=== PATIENT | male | born 1935 | race Caucasian/White ===

== ENCOUNTER 2017-04-01 18:08 | Emergency (ER) | payer MEDICARE ==
[~2017-04-01] VITALS: Ht 177.8 cm; Wt 65.9 kg
[~2017-04-01 18:08] MED LIST: AMLO-39 PO; CHOL200020 PO; FURO-3 PO; MULT-1018 PO; NATTOKINASE PO; OMEG1CAP25 PO; UBID50TA3 PO; [UNRECOGNIZED DRUG - CODE] PO
[2017-04-01 18:53] VITALS: BP 97/64; PULSE 61; RESP 20; O2SAT 99
--- NOTE | 2017-04-01 19:03 | ED.REPORT ---
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 The pt was attempting to sit down this afternoon when he "missed the stool" and fell onto his right side. He hit his right arm and shoulder against a table, resulting in immediate pain, and sustained several abrasions on his right hand while trying to catch himself. He is now experiencing significant right shoulder pain and is unable to lift his arm, though he denies loss of consciousness. The pt last had chemotherapy two weeks ago. He takes two 81 mg aspirin per day. The pt is unsure of his tetanus status. Nursing Notes Stated Complaint: GLF,RIGHT ARM AND HAND INJURY Chief Complaint: Extremity Trauma Nursing Notes Reviewed: Yes Allergies: Coded Allergies: No Known Allergies (Unverified , 04/01/17) Scheduled ([Nattokinase]) 50 MG PO DAILY Acetaminophen (Pain Reliever) 500 Mg Tablet 1,000 MG PO Q4HP AmLODIPine-Expunged Drug, Do Not Renew! (AmLODIPine-Expunged Drug, Do Not Renew! ) 5 Mg Tablet 5 MG PO BID Cholecalciferol (D3)-Expunged Drug, Do Not Re (Vitamin Q-5-Vpppsoda Drug, Do Not Renew!) 2,000 Unit Capsule 4,000 UNIT PO DAILY Furosemide-Expunged Drug, Do Not Renew! (Furosemide-Expunged Drug, Do Not Renew! ) 40 Mg Tablet 40 MG PO BID 40 MG DAILY MULTIVITAMIN-Expunged Drug, Do Not Renew! (MULTI VITAMIN -Expunged Drug, Do Not Renew!) 1 Each Tablet 1 EACH PO DAILY [place]-3 Fatty Acids/Fish Oil-Expunged, Do Not ([place] 3 Fish Oil-Expunged, Do Not Renew!) 1 Cap.ec Capsule. 1 CAP.EC PO DAILY Ubidecarenone (Coq10) 50 Mg Tab.chew 100 MG PO DAILY General Time Seen by MD: 19:02 Chief Complaint Fall Hx Obtained From: Patient Arrived By: Walk-in Onset Occurred: 1 - 4 hours ago Symptom Duration: Since onset Recent Healthcare: No recent doctor visit, No recent hospitalization Similar Sx Previous: No Past Medical History Past Medical History TIA without deficits Hypertension Pneumonia Diverticulosis Hiatal hernia UTI Hemodialysis 2012 Arthritis Depression Anxiety Ureter cancer Past Surgical History Left kidney removal Nephrectomy Reports: Tonsillectomy Smoking History Former Smoker ("quit decades ago") Social History Alcohol Use: "Social" Other Social History: Good social support Ambulatory Status Independent Review of Systems Respiratory: Denies: Non-productive cough, Shortness of breath Musculoskeletal: Reports: Extremity pain, Joint pain, Denies: Neck pain Skin: Denies Rash Neurologic: Denies: Change LOC Complete sys rev & neg: except as marked. Cardiovascular: Denies: Chest pain GI: Denies: Abdominal pain, Vomiting Physical Exam Initial Vital Signs Vital Signs (First) Date Time Temp Pulse Resp B/P Pulse Ox O2 Delivery O2 Flow Rate FiO2 04/01/17 18:53 36.6 61 20 97/64 99 Room Air Initial VS: Reviewed General/Constitutional: Awake, Alert Neck: Atraumatic, Supple, Full range of motion Head / Eyes: Atraumatic, Normocephalic, PERRL, EOMI ENT: Atraumatic, Airway patent, Mucous membranes moist Respiratory / Chest: Atraumatic, Breath sounds NL, Breath sounds = bilat, No respiratory distress Cardiovascular: Heart rate NL, Regular rhythm, Heart sounds NL, No gallop, No murmurs, No rubs Abdomen: Atraumatic, Soft, Non-tender Back: Atraumatic, Full range of motion Upper Extremity / MS: Neurologic intact, Vascular intact right clavicle intact shoulder does not appear to be dislocated no focal tenderness radial and ulnar pulses intact Wrist / Hand: Neurologic intact, Vascular intact skin tears over the right metacarpals and proximal phalanx of right fourth finger small skin tear on right wrist full power of extension in fingers Lower Extremity / Pelvis / MS: Atraumatic, Full range of motion Skin: Color NL, No rash, Warm, Dry Neurologic: Oriented X3, Speech NL, No motor deficits, No sensory deficits Psychiatric: Affect NL, Mood NL Interpretation & Diagnostics X-Ray Interpretation Xray Interpretation: IMPRESSION: No acute fracture. No osseous lesion. If clinical suspicion and/or symptoms persist, further assessment with repeat plainfilms, or advanced imaging (e.g., CT, MRI, or bone scan) may be helpful for further assessment. Dictated by: Adrian Zamora M.D. on 04/01/2017 at 20:01 Approved by: Adrian Zamora M.D. on 04/01/2017 at 20:01 X-Ray Ordered: Shoulder right Interpretation / Wet Read by: Interpret - Radiologist Xray Interpretation: IMPRESSION: No acute fracture. No osseous lesion. If clinical suspicion and/or symptoms persist, further assessment with repeat plainfilms, or advanced imaging (e.g., CT, MRI, or bone scan) may be helpful for further assessment. Dictated by: Adrian Zamora M.D. on 04/01/2017 at 20:00 Approved by: Adrian Zamora M.D. on 04/01/2017 at 20:01 X-Ray Ordered: Hand right Interpretation / Wet Read by: Interpret - Radiologist Procedures Procedure Notes: Shoulder immobilizer applied, hand wounds clean, steri-strips applied. Re-Eval/Medical Decision Source of Hx: Old records Re-Evaluation/Progress : Time of Eval: 20:19 Patient Status: Condition improved Re-Evaluation/Progress Note: Pt rechecked, who is comfortable. The diagnosis and plan for discharge are discussed. The pt understands and agrees with the plan. All questions are addressed at this time. Counseled Regarding: Diagnosis, Lab results, Need for follow-up, When/why to return to ED Discharge & Departure Departure Notes DC BP 110 systolic Impression: Primary Impression: Right shoulder strain Encounter type: initial encounter Qualified Code: S46.911A - Strain of unspecified muscle, fascia and tendon at shoulder and upper arm level, right arm , initial encounter Additional Impression: Skin tear of hand without complication Encounter type: initial encounter Laterality: right Qualified Code: S61.411A - Laceration without foreign body of right hand, initial encounter Disposition: Home Discharge Condition All VS Reviewed: Yes Condition: Stable Patient Instructions: Shoulder Sprain (ED) Additional Instructions: Emergency Department evaluation this evening included interview, examination and x-ray of the right shoulder and hand. No bony injury is identified today. We advised that the right shoulder be immobilized in a sling for comfort. Within 2 days beg to gently remove arm from sling and do range of motion exercises such as hanging arm down below shoulder and doing circles. Ice to the shoulder, keep ice wrapped in a towel and remove after 15-20 minutes. You can do this several times a day. Acetaminophen as needed for pain. Use cane in left hand for ambulation. Steri-Strips are applied to skin tears on hand, these can be left on until they peel off spontaneously. Keep hand clean and dry. Follow-up with primary care next week. Return to emergency department for difficulty breathing and chest pain nausea or vomiting. Referrals: Francisco Thorpe MD (PCP) Scribe Attestation Portions of this note were transcribed by Leonid Sotro. I, Dr. Rapp personally performed the history, physical exam and medical decision-making; I reviewed and confirmed the accuracy of the information in the transcribed note. copies to: Francisco Thorpe MD, Donald L MD Apr 01, 2017 19:03 LEONID SORTO Apr 01, 2017 20:08
[2017-04-01] MEDS ORDERED: oxyCODONE-Acetamin 5-325 mg Tablet PO ONE (19:15)
--- NOTE | 2017-04-01 20:02 | DRSVH ---
PROCEDURE: X-RAY RIGHT HAND, MINIMUM THREE VIEWS ([id number]) INDICATIONS: shoulder hand pain post fall TECHNIQUE: 3 views of the hand(s) acquired. COMPARISON: None. FINDINGS: Bones: No fractures or dislocations. Carpal bones are normally aligned. No suspicious bony lesions . Severe periarticular osteophyte formation at the first carpal metacarpal joint. Soft tissues: No suspicious soft tissue calcifications. IMPRESSION: No acute fracture. No osseous lesion. If clinical suspicion and/or symptoms persist, fur ther assessment with repeat plainfilms, or advanced imaging (e.g., CT, MRI, or bone scan) may be help ful for further assessment. Dictated by: Adrina Zamora M.D. on 04/01/2017 at 20:00 Approved by: Adrian Zamora M.D. on 04/01/2017 at 20:01
--- NOTE | 2017-04-01 20:03 | DRSVH ---
PROCEDURE: X-RAY RIGHT SHOULDER, MINIMUM TWO VIEWS ([id number]) INDICATIONS: shoulder hand pain post fall TECHNIQUE: 3 views of the shoulder were acquired. COMPARISON: None. FINDINGS: Bones: No fractures or dislocations. No suspicious bony lesions. Visualized ribs appear intact. P eriarticular osteophyte formation at the acromioclavicular and glenohumeral joints. Soft tissues: No suspicious soft tissue calcifications. IMPRESSION: No acute fracture. No osseous lesion. If clinical suspicion and/or symptoms persist, fur ther assessment with repeat plainfilms, or advanced imaging (e.g., CT, MRI, or bone scan) may be help ful for further assessment. Dictated by: Adrian Zamora M.D. on 04/01/2017 at 20:01 Approved by: Adrian Zamora M.D. on 04/01/2017 at 20:01
[2017-04-01 21:17] VITALS: BP 110/67; PULSE 65; RESP 20; O2SAT 99
== END 2017-04-01 21:18 | disposition home or self-care (01) ==
LOC: SED 18:08
DX: S46.911A Strain of unspecified muscle, fascia and tendon at shoulder and upper arm level, right arm, initial encounter (principal); S61.411A Laceration without foreign body of right hand, initial encounter; S61.511A Laceration without foreign body of right wrist, initial encounter; W08.XXXA Fall from other furniture, initial encounter; Y93.89 Activity, other specified; Y99.8 Other external cause status; Y92.008 Other place in unspecified non-institutional (private) residence as the place of occurrence of the external cause; I10 Essential (primary) hypertension; F41.9 Anxiety disorder, unspecified; Z86.73 Personal history of transient ischemic attack (TIA), and cerebral infarction without residual deficits; Z85.89 Personal history of malignant neoplasm of other organs and systems; Z87.440 Personal history of urinary (tract) infections; Z87.891 Personal history of nicotine dependence; Z92.21 Personal history of antineoplastic chemotherapy; Z90.5 Acquired absence of kidney; Z79.82 Long term (current) use of aspirin